=== PATIENT | male | born 1980 | race Caucasian/White ===

== ENCOUNTER 2018-10-10 15:47 | Emergency (ER) | payer OTHER ==
[~2018-10-10] VITALS: Ht 180.3 cm; Wt 96.0 kg
[2018-10-10] MEDS ORDERED: ketorolac trometh inj. 60 MG/2 ML VIAL IM ONE (18:30)
[2018-10-10] MEDS ORDERED: CYCL-1 PO (18:41)
[2018-10-10] MEDS ORDERED: IBUP-1984 PO (18:41)
[2018-10-10] MEDS ORDERED: HYDR-4383 PO (18:41)
[2018-10-10 19:25] VITALS: BP 126/75
== END 2018-10-10 19:34 | disposition home or self-care (01) ==
LOC: ER 15:48
DX: M25.562 Pain in left knee (principal); M25.571 Pain in right ankle and joints of right foot; W17.89XA Other fall from one level to another, initial encounter; Y93.89 Activity, other specified; Y92.89 Other specified places as the place of occurrence of the external cause; Y99.8 Other external cause status
CPT/HCPCS: 73564; 73610; 73630; 96372; 99284; J1885